=== PATIENT | female | born 1985 | race Caucasian/White ===

== ENCOUNTER → 2017-02-25 | Outpatient (CLI) | payer BC ==
[2016-01-13 23:02] VITALS: BP 127/62
[~2017-02-25] MED LIST: AMOX500C PO; DICY20TA3 PO; IBUP200T43 PO; IBUP600T16 PO; METH4TAB2 PO; NORPLANT; ONDA4TAB10 SL; TRAM50TA PO; [UNRECOGNIZED DRUG - OTHER] TOP
[2017-02-25 12:48] LABS: U PREG PATIENT NEGATIVE (NEG)
--- NOTE | 2017-02-25 13:19 | RAD ---
Indication right kidney pain. History of stone removal from the right kidney. Interstitial cystitis. Noncontrast imaging through the abdomen and pelvis was performed. Note is made of a prior examination 04/26/2015. The lung bases are clear. Breast implants are noted. The liver and spleen appear unremarkable. The gallbladder is grossly normal. No pancreatic abnormality is seen. There are no adrenal masses. There are minute intrarenal calculi involving both kidneys. There is no hydronephrosis hydroureter or calcification seen along the course of either ureter there small calcifications in the pelvis compatible with phleboliths. No pancreatic abnormality is seen. Acute finding in the abdomen is not apparent. No acute or definite significant finding seen in the pelvis. There is a oval low-density 3.5 cm mass in the left adnexa likely reflecting a dominant cyst associated with the ovary. IMPRESSION: No acute or significant finding seen in the abdomen or pelvis. Minute bilateral intrarenal calculi noted. Probable dominant physiologic cyst associated with the left ovary PQRS Compliance Statement: One or more of the following individualized dose reduction techniques were utilized for this examination: 1. Automated exposure control 2. Adjustment of the mA and/or kV according to patient size 3. Use of iterative reconstruction technique
== END | disposition home or self-care (01) ==
LOC: CT 12:09
PROVIDERS: ATTEND Nurse Practitioner Family
DX: N20.0 Calculus of kidney (principal)
CPT/HCPCS: 74176; 81025